=== PATIENT | female | born 1990 | race Caucasian/White ===

== ENCOUNTER → 2017-12-26 | Emergency (ER) | payer OTHER ==
[~2017-12-26] VITALS: Ht 165.1 cm; Wt 63.5 kg
[~2017-12-26] MED LIST: FLONASE ALLERG9.9 ML NASAL; KETO10TA2 PO; MUCINEX DM ER1 EAC1 PO; ZITHROMAX500 MG PO
== END | disposition home or self-care (01) ==
LOC: ER 10:52
DX: J06.9 Acute upper respiratory infection, unspecified (principal); J32.8 Other chronic sinusitis